=== PATIENT | male | born 1985 | race African-American/Black ===

== ENCOUNTER 2017-03-30 21:23 | Emergency (ER) | payer OTHER ==
[~2017-03-30] VITALS: Ht 177.8 cm; Wt 83.9 kg
[~2017-03-30 21:23] MED LIST: AMITRIPTYLINE H50 M2 PO; APAP500; BUTRANS1 EAC1 TD; BUTRANS1 EAC2 TD; HUMALOG100 UNIT/2 SQ; IBUPROFEN 200200 M1; LINZESS290 MCG PO; MELATONIN3 MG PO; METHADONE HCL5 MG PO; PHENERGAN 25 MG25 M1 PO; TRILEPTAL150 MG PO; VITAMIN D 5050000 I1 PO; Z-SLEEP50 MG/30 M; ZETIA10 MG PO
[2017-03-30] MEDS ORDERED: HYDROCODONE-AP1 EAC6 PO (22:30)
[2017-03-30 23:05] VITALS: BP 131/80
== END 2017-03-30 23:07 | disposition home or self-care (01) ==
LOC: ER 21:23
DX: M25.552 Pain in left hip (principal); M25.532 Pain in left wrist; E11.9 Type 2 diabetes mellitus without complications; Z91.013 Allergy to seafood; Z79.4 Long term (current) use of insulin; W01.0XXA Fall on same level from slipping, tripping and stumbling without subsequent striking against object, initial encounter; Y93.89 Activity, other specified; Y92.89 Other specified places as the place of occurrence of the external cause; Y99.8 Other external cause status

== ENCOUNTER 2017-08-25 17:18 | Emergency (ER) | payer OTHER ==
[~2017-08-25] VITALS: Ht 177.8 cm; Wt 84.8 kg
[~2017-08-25 17:18] MED LIST changes: +HYDROCODONE-AP1 EAC6 PO
[2017-08-25 18:12] LABS: ABSOLUTE NEUTROPHILS 5.2 thou/uL (1.4-8.2); BASOPHILS 1.1 % (0.0-2.0); EOSINOPHILS 2.1 % (0.0-3.0); HEMATOCRIT 37.5 % (42.0-52.0); HEMOGLOBIN 12.5 gm/dL (14.0-18.0); LYMPHOCYTES 22.1 % (24.0-44.0); MCH 27.7 pg (26.0-34.0); MCHC 33.2 g/dL (28.0-37.0); MCV 83.6 fL (80.0-100.0); MONOCYTES 11.2 % (1.0-8.0); PLATELET COUNT 250 thou/uL (150-400); POLYS 63.5 % (36.0-66.0); RBC 4.49 mil/uL (4.50-6.00); RDW 13.6 % (10.5-14.5); WBC 8.3 thou/uL (4.0-11.0)
[2017-08-25] MEDS ORDERED: PROAIR HFA8.5 GM INH (18:17)
[2017-08-25] MEDS ORDERED: LISINOPRIL10 MG PO (18:20)
[2017-08-25] MEDS ORDERED: QVAR REDIHALE10.6 G1 INH (18:20)
[2017-08-25] MEDS ORDERED: PROAIR RESPICL90 MCG INH (18:21)
[2017-08-25 18:34] LABS: CALCIUM 9.1 mg/dL (8.5-10.1); CREATININE 1.3 mg/dL (0.7-1.3); POTASSIUM 4.7 mmol/L (3.5-5.1); TOTAL BILIRUBIN 0.5 mg/dL (<0.1-1.0); TOTAL PROTEIN 8.4 g/dL (6.4-8.2)
[2017-08-25] MEDS ORDERED: AUGMENTIN 875-1 EACH PO (20:09)
== END 2017-08-25 22:15 | disposition left against medical advice (07) ==
LOC: ER 17:18
PROVIDERS: Physician Assistant
DX: E11.621 Type 2 diabetes mellitus with foot ulcer (principal); E11.65 Type 2 diabetes mellitus with hyperglycemia; L97.529 Non-pressure chronic ulcer of other part of left foot with unspecified severity; R79.82 Elevated C-reactive protein (CRP); R74.0 Nonspecific elevation of levels of transaminase and lactic acid dehydrogenase [LDH]; M86.9 Osteomyelitis, unspecified; Z91.013 Allergy to seafood

== ENCOUNTER 2018-02-15 16:44 | Emergency (ER) | payer OTHER ==
[~2018-02-15] VITALS: Ht 177.8 cm; Wt 83.9 kg
[~2018-02-15 16:44] MED LIST changes: +AUGMENTIN 875-1 EACH PO; +LISINOPRIL10 MG PO; +PROAIR HFA8.5 GM INH; +PROAIR RESPICL90 MCG INH; +QVAR REDIHALE10.6 G1 INH
[2018-02-15] MEDS ORDERED: NORCO 5-325 TA1 EACH PO (17:25)
[2018-02-15 18:02] VITALS: BP 131/82
== END 2018-02-15 18:03 | disposition home or self-care (01) ==
LOC: ER 16:44
DX: S62.324A Displaced fracture of shaft of fourth metacarpal bone, right hand, initial encounter for closed fracture (principal); I10 Essential (primary) hypertension; E78.5 Hyperlipidemia, unspecified; E11.40 Type 2 diabetes mellitus with diabetic neuropathy, unspecified; Z79.4 Long term (current) use of insulin; Z91.013 Allergy to seafood; W23.1XXA Caught, crushed, jammed, or pinched between stationary objects, initial encounter; Y92.89 Other specified places as the place of occurrence of the external cause; Y93.89 Activity, other specified; Y99.8 Other external cause status

== ENCOUNTER 2018-04-14 22:49 | Emergency (ER) | payer OTHER ==
[~2018-04-14] VITALS: Ht 177.8 cm; Wt 93.0 kg
[~2018-04-14 22:49] MED LIST changes: +NORCO 5-325 TA1 EACH PO
[2018-04-15] MEDS ORDERED: KEFLEX500 M1 PO (00:48)
[2018-04-15 01:05] VITALS: BP 132/89
== END 2018-04-15 01:06 | disposition home or self-care (01) ==
LOC: ER 22:49
DX: S66.127A Laceration of flexor muscle, fascia and tendon of left little finger at wrist and hand level, initial encounter (principal); E11.9 Type 2 diabetes mellitus without complications; Z91.09 Other allergy status, other than to drugs and biological substances; W26.0XXA Contact with knife, initial encounter; Y93.89 Activity, other specified; Y92.89 Other specified places as the place of occurrence of the external cause; Y99.8 Other external cause status

== ENCOUNTER 2018-04-21 05:25 | Day surgery (SDC) | payer OTHER ==
[~2018-04-21] VITALS: Ht 154.9 cm; Wt 95.7 kg
--- NOTE | ~2018-04-21 | O ---
[facility] [place] [address] OPERATIVE REPORT Name: GORDO RAY Room #: 150-3 [facility] M.R.#: [id number] Admission: 04/21/18 ������������������ Attend Phys: Sana Fernandes, Discharge: ������������������ Date of : [birth year] Report #: [id number] THIS REPORT FOR: //name// CC: Fco Fernandes DATE OF SERVICE: 04/21/2018 PREOPERATIVE DIAGNOSES: Left small finger probable zone 2 flexor tendon and digital nerve injury. POSTOPERATIVE DIAGNOSES: 1. Left zone 2 flexor digitorum profundus transection. 2. Left zone 2 flexor digitorum superficialis transection. 3. Left small finger ulnar digital nerve transection. 4. Left small finger radial digital nerve transection. 5. Left ring finger ulnar digital nerve partial injury. 6. Left small finger A2 rohan injury. PROCEDURE PERFORMED: 1. Left small finger wound exploration. 2. Left small finger zone 2 flexor digitorum profundus repair. 3. Left small finger flexor digitorum superficialis excision. 4. Left small finger ulnar digital nerve repair with a nerve tube. 5. Left small finger radial digital nerve repair with a nerve tube. 6. Left ring finger ulnar digital nerve wrapping. 7. Left small finger A2 rohan repair. SURGEON: Sana Fernandes MD. ANESTHESIA: General mask anesthesia. ESTIMATED BLOOD LOSS: Minimal. TOURNIQUET TIME: 94 minutes. COMPLICATIONS: None. CONDITION: Stable. DISPOSITION: Recovery room. INDICATIONS: The patient is a 33-year-old male with the above-mentioned diagnosis. He elects for operative treatment. The risks, benefits, alternatives and complications were discussed that included but were not limited to infection, damage to vessels or nerves and incomplete relief of his symptoms. [address] [place] [address] OPERATIVE REPORT Name: GORDO RAY Room #: 150-3 [facility] Carol#: [id number] Admission: 04/21/18 ������������������ Attend Phys: Sana Fernandes, Discharge: ������������������ Date of : [birth year] Report #: [id number] We discussed he is high likelihood to have stiffness and having some persistent numbness. He was encouraged to get to therapy on Wednesday at the ____. Informed consent was obtained. The correct extremity was identified and labeled by myself after verbal confirmation of the patient as well as visual confirmation and signed informed consent. DESCRIPTION OF PROCEDURE: The patient brought back to the operating room and placed on the operating table in a supine position. He received preoperative antibiotics. Tourniquet was placed over padding. The patient's left upper extremity was sterilely prepped and draped in usual fashion. Final timeout was taken to verify the correct patient, operative procedure, operative site, all concurred. The arm was elevated, exsanguinated and tourniquet inflated. The entire procedures were done with the aid of 3.5 times loupe magnification. The suture was removed from the prior wound. It extended from the mid portion of the ring finger over to the ulnar side of the small finger and extended distally almost to the PIP joint. The wound was explored both proximally and distally in a modified Kalyan-type incision. Dissection was carried down through the subcutaneous tissue with tenotomy scissors. Each digital nerve on the radial and ulnar sides of the small finger were identified. They were found to be completely transected and after the edges were cleaned with microsurgical techniques, there was a 5 mm gap. Next, the ulnar side of the ring finger digital nerve was identified. It was a partial transection. Next, the FDP and FDS tendons were identified. There was approximately 60% transection of the A2 rohan. The FDP tendon looked completely transected. The FDS tendon was extremely thinned and small and it was elected to remove it in order to decrease the bulk and hopefully improve the range of motion in this patient. It was excised. Careful attention placed to avoiding damage to the A1 rohan or any other rohan structures. Each radial and ulnar digital nerve was repaired using 9-0 nylon suture into a 2 mm AxoGen nerve tube. There was approximately 5 mm gap after repair and there was no significant tension with the finger in full extension. Next, a nerve wrap was placed around the ulnar digital nerve ends and sutured with 9-0 nylon suture. Next, the FDP tendon was repaired using a locked cruciate stitch with 3-0 Supramid and a running locked epitendinous 5-0 Prolene stitch. There was no gapping with extension. After this was done, the A2 rohan was repaired using 4-0 Ethibond suture and then the transverse portion was repaired using a 4-0 Vicryl suture. This resulted in good glide through the rohan system. The wound was thoroughly irrigated. The skin was closed with 4-0 nylon suture. Approximately 5 mL of 0.25% Marcaine was placed subcutaneously. The hand was placed in a volar dorsal slab splint with the wrist and fingers flexed. All fingers were pink with brisk capillary refill at the conclusion of the case [facility] [address] [place] [address] OPERATIVE REPORT Name: GORDO RAY Room #: 150-3 [facility] Carol#: [id number] Admission: 04/21/18 ������������������ Attend Phys: Sana Fernandes, Discharge: ������������������ Date of : 87 Report #: [id number] after deflation of tourniquet. All sponge and needle counts were correct. The patient was transferred to postoperative recovery room in stable condition. ��������������������������������������������� ���������������������������������������� By: ��������������������������������������������� 1336 1501 Sana Fernandes MD /love
[~2018-04-21 05:25] MED LIST changes: +CENTRUM SILVER1 EAC4 PO; +ERGOCALCIF50000 UNIT PO; +FLUTICASONE PRO16 GM NASAL; +KEFLEX500 M1 PO; +PULMICORT FLEX90 MCG INH
[2018-04-21 08:03] VITALS: BP 140/78
--- NOTE | 2018-04-21 08:42 | EKG ---
[place] [address] [facility] [employer] ([employer]) [place] [address] ELECTROCARDIOGRAM REPORT Name: GORDO RAY Room #: 150-3 [facility].#: [id number] ������������������ Admission: 04/21/18 ������������������ Attend Phys: Sana Fernandes, Discharge: ������������������ Date of : 87 Report #: [id number] ����������������������������������������������������������������� [id number] THIS REPORT FOR: //name// [facility] Test Date: 2018-04-21 Test Time: 08:02:57 Pat Name: GORDO RAY Department: Room: 150 3 Gender: M Engine Builder: MARIJA : 1985 Requested By: Sana Fernandes Order Number: [id number] MD: Octaviano Morris Measurements Intervals Switchback Rate: 98 P: 71 NM: 150 QRS: 46 QRSD: 93 T: 25 QT: 325 QTc: 415 Interpretive Statements Sinus rhythm ST elev, probable normal early repol pattern Baseline wander in lead(s) I,V3 No previous ECG available for comparison Electronically Signed On 04-21-2018 8:42:31 MARKETING ANALYTICS SPECIALIST by Octaviano Morris [email or web address] ��������������������������������������������� <ELECTRONICALLY SIGNED> ���������������������������������������� By: Octaviano Morris MD, [facility] ��������������������������������������������� 04/21/18 0842 1 1 Octaviano Morris MD, [facility] /EPI
[2018-04-21 12:47] VITALS: BP 140/78
== END 2018-04-21 13:30 | disposition home or self-care (01) ==
LOC: TBA 05:25 → OR 05:25
DX: S64.497A Injury of digital nerve of left little finger, initial encounter (principal); S66.127A Laceration of flexor muscle, fascia and tendon of left little finger at wrist and hand level, initial encounter; X58.XXXA Exposure to other specified factors, initial encounter; Y93.89 Activity, other specified; Y92.89 Other specified places as the place of occurrence of the external cause; Y99.8 Other external cause status; Z79.899 Other long term (current) drug therapy; Z79.01 Long term (current) use of anticoagulants
CPT/HCPCS: 50010; 50101; 50386; 55430; 56525; 56526; 56528; 56531; 56532; 57006; 57091; 57178; 62110; 62900; 70005

== ENCOUNTER 2018-05-26 23:20 | Emergency (ER) | payer OTHER ==
[~2018-05-26] VITALS: Ht 177.8 cm; Wt 89.8 kg
[2018-05-27 01:51] LABS: HEMATOCRIT 40.2 % (42.0-52.0); HEMOGLOBIN 13.8 gm/dL (14.0-18.0); MCH 28.4 pg (26.0-34.0); MCHC 34.2 g/dL (28.0-37.0); MCV 82.9 fL (80.0-100.0); PLATELET COUNT 205 thou/uL (150-400); RBC 4.85 mil/uL (4.50-6.00); RDW 13.9 % (10.5-14.5); WBC 5.7 thou/uL (4.0-11.0)
[2018-05-27 01:57] LABS: CALCIUM 9.5 mg/dL (8.5-10.1); CREATININE 1.2 mg/dL (0.7-1.3); POTASSIUM 3.8 mmol/L (3.5-5.1)
[2018-05-27 02:02] LABS: ALBUMIN 3.5 g/dL (3.4-5.0); DIRECT BILIRUBIN 0.1 mg/dL (<0.1-0.3); TOTAL BILIRUBIN 0.4 mg/dL (<0.1-1.0); TOTAL PROTEIN 7.4 g/dL (6.4-8.2)
[2018-05-27] MEDS ORDERED: PROTONIX 20 MG20 M1 PO (02:33)
[2018-05-27 02:59] VITALS: BP 118/62
[2018-05-27 03:38] LABS: ABSOLUTE NEUTROPHILS 2.6 thou/uL (1.4-8.2)
== END 2018-05-27 03:01 | disposition home or self-care (01) ==
LOC: ER 23:20
PROVIDERS: Student in an Organized Health Care Education/Training Program
DX: K21.9 Gastro-esophageal reflux disease without esophagitis (principal); I10 Essential (primary) hypertension; E78.5 Hyperlipidemia, unspecified; J45.909 Unspecified asthma, uncomplicated; E11.43 Type 2 diabetes mellitus with diabetic autonomic (poly)neuropathy; K31.84 Gastroparesis; M54.9 Dorsalgia, unspecified; G89.29 Other chronic pain; Z88.1 Allergy status to other antibiotic agents; Z91.013 Allergy to seafood; Z79.4 Long term (current) use of insulin

== ENCOUNTER → 2019-03-03 | Day surgery (SDC) | payer OTHER ==
[~2019-03-03] MED LIST changes: +PROTONIX 20 MG20 M1 PO
--- NOTE | ~2019-03-03 | O ---
[facility] [place] [address] OPERATIVE REPORT Name: GORDO RAY Room #: [facility] M..#: [id number] Admission: 03/03/19 Attend Phys: Sana Fernandes, Discharge: Date of : [birth year] Report #: [id number] THIS REPORT FOR: //name// CC: Carole Fernandes DATE OF SERVICE: 03/03/2019 PREOPERATIVE DIAGNOSIS: Left small finger abscess, possible flexor tenosynovitis. POSTOPERATIVE DIAGNOSIS: Left small finger abscess. PROCEDURE PERFORMED: Left small finger abscess, debridement of skin and subcutaneous tissue. SURGEON: Sana Fernandes MD ANESTHESIA: General mask anesthesia. ESTIMATED BLOOD LOSS: Minimal. TOURNIQUET TIME: 7 minutes. COMPLICATIONS: None. CONDITION: Stable. DISPOSITION: Recovery room. INDICATIONS: The patient is a 34-year-old male with the above-mentioned diagnosis. He elects for operative treatment. The risks, benefits, alternatives and complications were discussed including but not limited to infection, damage to vessels or nerves, incomplete relief of his symptoms or worsening of any symptoms. Informed consent was obtained. The correct extremity was identified and labeled by myself after verbal confirmation of the patient as well as visual confirmation and signed informed consent. DESCRIPTION OF PROCEDURE: The patient was brought back in the preoperative holding area. The patient again was examined. He did not have a significant amount of tenderness volarly along the flexor tendon sheath proximal to the distal phalanx. He was brought to the operating room and placed on the operating table in a supine position. He received antibiotics after cultures were taken and upon tourniquet deflation. The left upper extremity was elevated and the tourniquet was inflated. The distal portion of the incision where the patient reported drainage was opened using a prior surgical incision using a [facility] [address] [place] [address] OPERATIVE REPORT Name: CINTHYA RAYROMA Room #: [facility] Carol#: [id number] Admission: 03/03/19 Attend Phys: Sana Fernandes, Discharge: Date of : [birth year] Report #: [id number] Chevron type incision, totaling about 1.5 cm and purulent fluid was easily obtained. The dissection was carried down through subcutaneous tissue with tenotomy scissors. The insertion of the flexor tendon graft was identified. It was found to be intact. One suture that appeared to be somewhat loose was excised. A mosquito hemostat was placed proximally. No purulent fluid was found proximally and upon milking the tissue distally. No purulent fluid was found or any other type of cloudy fluid. This was then determined to be a deep abscess only, not involving the entire flexor tendon sheath and so the area was thoroughly irrigated and debrided with a liter of antibiotic saline. Next, the skin closed nicely without using any sutures and so the wound was dressed with sterile gauze. The tourniquet was deflated. A culture was taken and sent to microbiology for aerobic, anaerobic and fungal. The fingers were pink with brisk capillary refill at the conclusion of case after deflation of tourniquet. All sponge and needle counts were correct. The patient was transferred to postoperative recovery room in stable condition. He tolerated the procedure well. By: 1702 1713 Sana Fernandes MD /nt
== END | disposition home or self-care (01) ==
LOC: OR 11:51
DX: L02.512 Cutaneous abscess of left hand (principal); B96.89 Other specified bacterial agents as the cause of diseases classified elsewhere; I10 Essential (primary) hypertension; E11.621 Type 2 diabetes mellitus with foot ulcer; J45.909 Unspecified asthma, uncomplicated; E78.5 Hyperlipidemia, unspecified; K21.9 Gastro-esophageal reflux disease without esophagitis; M86.9 Osteomyelitis, unspecified; Z98.890 Other specified postprocedural states; Z79.899 Other long term (current) drug therapy; Z87.19 Personal history of other diseases of the digestive system; Z88.8 Allergy status to other drugs, medicaments and biological substances; Z79.4 Long term (current) use of insulin
CPT/HCPCS: 50010; 50101; 50386; 56526; 57006; 57091; 57178; 62110; 62900; 70005

== ENCOUNTER 2019-08-15 06:49 | Inpatient (IN) | payer OTHER ==
[~2019-08-15] VITALS: Ht 177.8 cm; Wt 96.2 kg
--- NOTE | ~2019-08-15 | O ---
[facility] [place] [address] OPERATIVE REPORT Name: GORDO RAY Room #: 434-P [facility] Carol#: [id number] Admission: 08/15/19 Attend Phys: Sana Fernandes, Discharge: Date of : 87 Report #: [id number] THIS REPORT FOR: cc: Carole Olmedo MD, Cora A. MD Deardorff,Sana Corona MD ~ CC: Carole Fernandes DATE OF SERVICE: 08/15/2019 PREOPERATIVE DIAGNOSIS: Left small finger possible P1 osteomyelitis with fracture. POSTOPERATIVE DIAGNOSIS: Left small finger possible P1 osteomyelitis with fracture. PROCEDURE PERFORMED: Left small finger incision and debridement, proximal phalanx bone. SURGEON: Sana Fernandes MD ANESTHESIA: General mask anesthesia. ESTIMATED BLOOD LOSS: 1 mL. TOURNIQUET TIME: 22 minutes. SPECIMEN: Swab and tissue were sent to microbiology. COMPLICATIONS: He aspirated at the end of the procedure upon awakening from anesthesia. INDICATIONS: The patient is a 34-year-old male with the above-mentioned diagnosis. He elects for operative treatment. The risks, benefits, alternatives and complications were discussed including but not limited to infection, damage to vessels or nerves, incomplete relief of his symptoms. Informed consent was obtained. The correct extremity was identified and labeled by myself after verbal confirmation of the patient as well as visual confirmation and signed informed consent. DESCRIPTION OF PROCEDURE: The patient was brought back to the operating room and placed in a supine position. He received preoperative antibiotics. Tourniquet was placed over padding on the patient's left upper extremity. Left upper extremity was sterilely prepped and draped in the usual fashion. Final timeout was taken to verify correct patient, operative procedure, and operative [address] [address] OPERATIVE REPORT Name: GORDO RAY Room #: 434-P [facility] Abel Med[place]#: [id number] Admission: 08/15/19 Attend Phys: Sana Fernandes, Discharge: Date of : [birth year] Report #: [id number] site, all concurred. The arm was elevated, but was not exsanguinated and the tourniquet inflated. Next, an ulnar-sided incision was made at the mid portion of the left small finger P1. Dissection was carried down through subcutaneous tissue with tenotomy scissors. The fracture site was identified. It was curetted. There was no purulent fluid and the bone actually felt to be of good quality. Fluoroscopic guidance was used. The area was then thoroughly irrigated with a liter of antibiotic saline. The fracture had very minimal motion to it using live fluoroscopic guidance. The skin was then closed with 4-0 nylon suture. The wound was dressed with Xeroform and sterile gauze. He was placed in a bulky dressing and an ulnar gutter splint. All fingers were pink with brisk capillary refill at the conclusion of case after deflation of tourniquet and after application of dressing. All sponge and needle counts were correct. As the patient was awakening from anesthesia, he vomited and appeared to aspirate some of the fluid into his lungs, he was suctioned appropriately. Please see anesthesia record for further details regarding this. The patient was transferred to postoperative recovery room in stable condition. By: 1304 1336 Sana Fernandes MD /nt
[~2019-08-15 06:49] MED LIST changes: -ERGOCALCIF50000 UNIT PO; -HUMALOG100 UNIT/2 SQ; +HUMALOG100 UNIT/2 SUBQ; +OLMESARTAN MEDO20 MG PO; +VITAMIN D21250 MC1 PO
--- NOTE | 2019-08-15 08:14 | EKG ---
[facility] [place] [address] ELECTROCARDIOGRAM REPORT Name: GORDO RAY Room #: 150-4 [facility] M.R.#: [id number] Admission: 08/15/19 Attend Phys: Sana Fernandes, Discharge: Date of : [birth year] Report #: [id number] THIS REPORT FOR: cc: aCrole Olmedo MD, Cora A. 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: Reva IBARRA : 1985 Requested By: Sana Fernandes Order Number: [id number] MD: Octaviano Morris Measurements Intervals [place] Rate: 100 P: 67 MO: 155 QRS: 42 QRSD: 78 T: 18 QT: 322 QTc: 416 Interpretive Statements Sinus tachycardia Otherwise no significant abnormality Compared to ECG 04/21/2018 08:02:57 Heart rate has increased Electronically Signed On 08-15-2019 8:13:23 CDT by Octaviano Morris [email or web address] <ELECTRONICALLY SIGNED> By: Octaviano Morris MD, [facility] 08/15/19 0813 0728 Octaviano Morris MD, [facility] /EPI
[2019-08-15 08:19] VITALS: BP 135/82
[2019-08-15 11:30] VITALS: BP 118/100
--- NOTE | 2019-08-15 11:30 | NUR ---
PT ADMITTED FROM PACU S/P I/D LT SMALL FINGER...ASPIRATED AFTER EXTUBATION... 100& SAT 2L PRIOR TO TX THEN RA SAT 95% IMMEDIATELY PRIOR TO TX TO 4S...PATIENT PLACED IN BED ON UNIT AND BEGAN SHAKING...WAS UNABLE TO KEEP HER SATS UP AND STARTED ON 2L THEN SATS 79%..INCREASED TO 9L WITH SATS 85%...THEN PLACED ON VENIMASK 50% FOR SATS 93%...SAT PROBE CHANGED TO EAR CLIP AND WARM BLANKETS APPLIED...AFTER PATIENT STOPPED SHIVERING HE WAS ABLE TO GO TO 98% ON RA...
[2019-08-15 12:00] VITALS: BP 110/63
--- NOTE | 2019-08-15 12:30 | NUR ---
NOTIFIED DR GRAHAM OF DESATING AND SHIVERING...CHEST XRAY RESULTS READ TO HER AND SHE CONSULTED DR ROBERSON FOR MEDICAL MGT AND DISCHARGE DECISIONS... DR ROBERSON CALLED AND ROUNDED ON PATIENT...
--- NOTE | 2019-08-15 12:46 | NUR ---
VASCULAR ACCESS CONSULTED FOR PICC POSTOP. PT'S LABS,MEDS,HISTORY ORDER AND CONSENT VERIFIED. DISCUSSED BENEFITS AND RISK OF PICC WITH PT, VERBALIZED UNDERSTANDING. YUVAL BASILIC WAS WIDELY PATENT WITH USG. SL 4FR POWER PICC TRIMMED TO 47CM INSERTED TO 1CM EXTERNAL. STAT CXR SHOWED LINE WENT UP JUGULAR, SO POWER FLUSHED AND REPOSITIONED. 2ND CXR VERIFIED PLACEMENT,CAJ. PICC RELEASED FOR IMMEDIATE USE TO [facility] SMILEY PER PROTOCOL.
[2019-08-15 12:48] VITALS: BP 127/62
[2019-08-15 14:16] LABS: ABSOLUTE NEUTROPHILS 5.3 thou/uL (1.4-8.2); BASOPHILS 0.5 % (0.0-2.0); HEMATOCRIT 41.7 % (42.0-52.0); HEMOGLOBIN 13.8 gm/dL (14.0-18.0); LYMPHOCYTES 7.9 % (24.0-44.0); MCH 28.1 pg (26.0-34.0); MCV 85.2 fL (80.0-100.0); MONOCYTES 7.2 % (1.0-8.0); PLATELET COUNT 229 thou/uL (150-400); POLYS 84.4 % (36.0-66.0); RBC 4.89 mil/uL (4.50-6.00); RDW 13.8 % (10.5-14.5); WBC 6.2 thou/uL (4.0-11.0)
[2019-08-15 14:25] LABS: CALCIUM 8.4 mg/dL (8.5-10.1); CREATININE 1.4 mg/dL (0.7-1.3); POTASSIUM 4.2 mmol/L (3.5-5.1)
[2019-08-15 14:30] LABS: ALBUMIN 3.1 g/dL (3.4-5.0); MAGNESIUM 1.8 mg/dL (1.8-2.4); TOTAL BILIRUBIN 0.6 mg/dL (0.2-1.0); TOTAL PROTEIN 6.6 g/dL (6.4-8.2)
[2019-08-15 14:33] LABS: BE(vivo) -2.6 mmol/L (-2 to +3); HCO3 21.7 mmol/L (22.0-26.0); PCO2 36.4 mmHg (35.0-45.0); pH 7.394 (7.360-7.450); sO2 85.5 % (92.0-98.0)
[2019-08-15 16:00] VITALS: BP 103/61
[2019-08-15 20:20] VITALS: BP 126/59
--- NOTE | 2019-08-16 04:13 | NUR ---
Assumed pt care at 1900. Pt A/OX4,VSS, Pt has a non-productive cough, lung sounds coarse/diminished desating on 4L,oxygen titrated up by RT to 6L/NC but sats in the lower 90's Venti-mask applied to support oxygenation sats 95%,pt encouraged to keep HOB up but states he's more comfortable lying down that way. Encouraged to use incentive spirometer while awake. Pt c/o pain to left side of body as well as left hand medicated per EMAR with some relief reported. Left hand on a splint wrapped in acewrap,CMS intact. RUE PICC patent with IVF/ABT's infusing w/o problems. Up with SBA,continent of B&B. Resting quietly in bed w/o distress noted, will continue to monitor pt.
[2019-08-16 04:15] VITALS: BP 115/49
[2019-08-16 05:46] LABS: ABSOLUTE NEUTROPHILS 7.9 thou/uL (1.4-8.2); BASOPHILS 0.8 % (0.0-2.0); EOSINOPHILS 0.3 % (0.0-3.0); HEMOGLOBIN 11.9 gm/dL (14.0-18.0); LYMPHOCYTES 14.9 % (24.0-44.0); MCH 28.3 pg (26.0-34.0); MCHC 33.1 g/dL (28.0-37.0); MCV 85.6 fL (80.0-100.0); MONOCYTES 5.4 % (1.0-8.0); PLATELET COUNT 188 thou/uL (150-400); POLYS 78.6 % (36.0-66.0); RBC 4.21 mil/uL (4.50-6.00); RDW 13.9 % (10.5-14.5)
[2019-08-16 06:05] LABS: CALCIUM 8.1 mg/dL (8.5-10.1); CREATININE 1.9 mg/dL (0.7-1.3); MAGNESIUM 2.1 mg/dL (1.8-2.4); POTASSIUM 4.1 mmol/L (3.5-5.1)
[2019-08-16 08:41] VITALS: BP 103/61
--- NOTE | 2019-08-16 09:09 | NUR ---
ORDERS RECEIVED FOR EVAL AND TREAT. SPOKE WITH Pt WHO STATES HE HAS ALREADY BEEN UP WITHOUT DIFFICULTY AND DOES NOT FEEL WEAK OR OFF BALANCE. Pt IS DECLINING FORMAL P.T. EVAL. DISCUSSED WITH NURSING AND THEY HAVE SEEN HIM MOBILIZE WITHOUT DIFFICULTY.
--- NOTE | 2019-08-16 09:31 | NUR ---
chart review. report from bedside nurse, pt off o2. picc line will stay in for dc continued treatment and he wants go home today per bedside nurse. cm visited with pt via phone call, intro to dcp and transition of care ie home infusion. " live wit sig other, safe, independent when feeling ok and not having bad day. have cane and walker if needed for bad days. work outside home before [employer], now working from home. my dr set up [facility] for iv care, labs and iv abx, think [facility] is providing all the care. they came up here to visit me yesterday"/janeen. will cont following as needed for dc needs.
--- NOTE | 2019-08-16 09:35 | NUR ---
PT ALERT XS 4 STATES NO PAIN AT THE PRESENT. FACILITY CHECKED BLOOD SUGAR BUT PATIENT SHOWED THIS NURSE HIS INSULIN PUMP HOW IT TAKES BLOOD SUGAR AND GIVES. INSULIN. PT IS PLEASANT AND COOPERATIVE. WANTS TO DISCHARGE TODAY.
[2019-08-16 11:05] VITALS: BP 103/61
--- NOTE | 2019-08-16 16:55 | NUR ---
CALL TO DR ROBERSON PT HAS T= 101.0 GAVE OXYCODONE NEED ORDERS INCLUDING TYLENOL
[2019-08-16 17:24] LABS: URINE BILIRUBIN NEGATIVE (Negative); URINE BLOOD 1+ (Negative); URINE CLARITY CLEAR; URINE COLOR YELLOW; URINE GLUCOSE-RANDOM* NEGATIVE (Negative); URINE KETONES NEGATIVE (Negative); URINE LEUKOCYTES-REFLEX NEGATIVE (Negative); URINE NITRITE-REFLEX NEGATIVE (Negative); URINE PROTEIN (DIPSTICK) NEGATIVE (Negative); URINE SPECIFIC GRAVITY 1.015 (1.005-1.035)
[2019-08-16 17:38] LABS: CASTS None Seen /LPF (None Seen); CRYSTALS None Seen /LPF (None Seen); SQUAMOUS None Seen /LPF (0-3); URINE WBC-REFLEX None Seen /HPF (0-5)
[2019-08-16 17:39] LABS: BACTERIA-REFLEX 1-9 Few /HPF (None Seen); URINE RBC 0-2 Rare /HPF (0-2)
[2019-08-16 17:53] VITALS: BP 120/56
[2019-08-16 19:17] VITALS: BP 104/46
--- NOTE | 2019-08-16 20:26 | NUR ---
PATIENT STATES HAS KEPT HIS PARTNER UP TO DATE ON HIS CONDITION NO NEED FOR THIS NURSE TO CALL.
[2019-08-17 03:44] VITALS: BP 120/75
--- NOTE | 2019-08-17 05:15 | NUR ---
Assumed pt care at 1900. Pt is A/OX4,VSS always a little tachy per pt.Pt had an elevated shift prior to shift change and was medicated with Tylenol with relief 98.5 on reassessment. Dsg in place on Left hand C/D/I,CMS intact. RUE PICC patent infusing IVF.Pt is up ad kian and calls approp for help. Pt has been on RA and sats above 90%,around 4 PCT observed pt's sats in the 70's pt somewhat confused when awokened.HOB elevated and oxygen applied at 4L/NC sats up to 92% RT updated other VSS. BS checked;109,denied any other symptoms. Pt encouraged to call short story writer as needed. Call light/personal items placed within reach, will continue to monitor pt.
[2019-08-17 05:59] LABS: CALCIUM 8.4 mg/dL (8.5-10.1); CREATININE 1.4 mg/dL (0.7-1.3)
[2019-08-17 07:05] VITALS: BP 91/53
--- NOTE | 2019-08-17 11:24 | NUR ---
discussed during los, per md no dc home today rt fever.
[2019-08-17 15:40] VITALS: BP 114/66
--- NOTE | 2019-08-17 17:26 | NUR ---
PT A&OX4. PICC LINE IN YUVAL INTACT INFUSING IV ANTIBIOTICS W/O COMPS. PT WITH INCREASED RESPERATIONS THIS AM, LS DIMINISHED AND ON RA. O2 SAT WAS 88%. PT PLACED ON O2 @ 3 LITERS, RT CALLED FOR BREATHING TREATMENT. PT ENCOURAGED TO TO DEEP BREATH AND USE IS. PT BREATHING SLOWER, O2 SAT AT 98% ON 1 LITER. WILL CONT POC.
[2019-08-17 18:56] VITALS: BP 131/88
--- NOTE | 2019-08-17 23:57 | NUR ---
ASSUMED PT CARE AT APPROX 1900.PT WAS OBSERVED GETTING OUT OF THE SHOWER AT SHIFT CHANGE.PT'S O2 WAS AT 88% WHEN HE CAME OUT FROM THE SHOWER,PT WAS PUT ON 2L/NC O2 WENT UP TO 96%.PT HAD A LOW GRADE TEMP,TYLENOL ADMINISTERED.DRSG TO HIS L HAND C/D/I.PT HAS AN INSULIN PUMP,BG WAS 103 AT HS.PT STILL TACHY,PER REPORT, PHYSICIAN AWARE.URINAL AT BEDSIDE.CALL LIGHT WITHIN REACH.
[2019-08-18 03:39] VITALS: BP 133/81
[2019-08-18 06:32] LABS: HEMATOCRIT 36.4 % (42.0-52.0); HEMOGLOBIN 11.9 gm/dL (14.0-18.0); MCH 27.9 pg (26.0-34.0); MCHC 32.6 g/dL (28.0-37.0); MCV 85.6 fL (80.0-100.0); RBC 4.26 mil/uL (4.50-6.00); RDW 13.9 % (10.5-14.5)
[2019-08-18 06:40] LABS: CALCIUM 8.4 mg/dL (8.5-10.1); CREATININE 1.1 mg/dL (0.7-1.3)
[2019-08-18 06:43] LABS: PCO2 42.5 mmHg (35.0-45.0); PO2 67.1 mmHg (80.0-100.0); pH 7.404 (7.360-7.450); sO2 93.4 % (92.0-98.0)
[2019-08-18 08:42] VITALS: BP 111/61
--- NOTE | 2019-08-18 09:38 | NUR ---
PATIENT IS UPSET STATES NIGHT NURSE WAS SUPPOSED TO BRING HIM INSULIN TO FILL PUMP. NEVER DID THIS NURSE CALLED PHARMACY THE PHARMACIST STATES WE CAN NOT LET PATIENTS DO THAT IN HOSPITAL. PT WAS TOLD TO EAT BREAKFAST AND THEN THIS NURSE WILL CHECK HIS BLOOD SUGAR AND PUMP READING AND GIVE HIM S/ HE WANTS TO GO GO HOME TODAY, THIS NURSE WILL PUT IN CALL TO DR ROBERSON.
--- NOTE | 2019-08-18 10:33 | NUR ---
report from bedside nurse, needing iv abx orders that was set up prior to admit to [facility]. cm called and [facility] vancom[facility] 1g q 12 hours. cm passed on information to bedside nurse to give to MD for dc possible today or over the weekend. bedside nurse to fax dc orders to [facility] [phone] and call so they can deliver the iv abx [phone]
[2019-08-18 17:29] VITALS: BP 126/72
--- NOTE | 2019-08-18 17:39 | NUR ---
PT'S SIGNIFICANT OTHER WAS HERE AND UPDATED ON PATIENT'S CONDITION. PT GIVEN TYLENOL PRN REQUESTED PRN FOR PAIN. O2 DELIEVERED PATIENT IS TO DC TOMMORROW.
[2019-08-18 19:30] VITALS: BP 129/72
--- NOTE | 2019-08-19 00:46 | NUR ---
PT OBSERVED COMING OUT FROM THE TOILET,SOB NOTED.PT NOTED TO BE COUGHING MORE THIS HS.PT CONT ON O2/NC.BG AT HS WAS 167,INSULIN DOSED PER PUMP.PT CONT ON IV ABX ORDERED.PT RESTING ON HIS BED AT THIS TIME.CALL LIGHT WITHIN REACH.
[2019-08-19 03:30] VITALS: BP 155/96
[2019-08-19 08:24] VITALS: BP 136/82
[2019-08-19 15:06] VITALS: BP 103/61
[2019-08-19 16:06] VITALS: BP 103/61
[2019-08-19 16:29] VITALS: BP 103/61
--- NOTE | 2019-08-19 16:32 | NUR ---
PATIENT DISCHARGED AT THIS TIME. PT TAKEN TO SECURITY / ER TO WAIT FOR CAB. PT W/O PAIN OR RESP DISTRESS AT DISCHARGE. DISCHARGE PAPERS GONE OVER WITH PATIENT SIGNED AND COPY IN CHART. PICC TO RIGHT UPPER ARM IN PLACE DRESSING CHANGED TODAY. PT TOOK SHOWER EARLIER. PT DOES NOT NEED O2 CAROL WILL COOK FISH EGGS WEDNESDAY.08/21/19.
[2019-08-19] MEDS ORDERED: AUGMENTIN 875-1 EACH PO (17:38)
--- NOTE | 2019-08-19 20:13 | NUR ---
PATIENT WAS AMBULATING THE HALLS WITH RESP THERAPY. NO SHORTNESS OF AIR. V.S 98.2 20 95 136/82 O2 SAT = 99%RA. PT IS READY TO DISCHARGE TO HOME. STATES READY TO GO HOME HAS ALWAYS HAD TACHY HEART RATE AND HAS HAD ASPIRATION IN PAST AND O2 IS LOW IF O2 SAT TAKEN ON FINGERS. NONE OF V.S OR SYMPTOMS IS NEW. PT STATES NO PAIN AND NO RESP DISTRESS. HE TOOK SHOWER EARLIER. IS CONT AND WALKS IN ROOM. PT IS PLEASANT AND COOPERATIVE WITH CARE.
== END 2019-08-19 16:37 | disposition home or self-care (01) | DRG 853 ==
LOC: OR 06:49 → TBA 06:49 → OR 08:01 → 4S 08:51 → OR 09:06 → 4S 08-19 16:37
PROVIDERS: ADMIT Orthopaedic Surgery Hand Surgery; ATTEND Internal Medicine
PROC: 02HV33Z Insertion of Infusion Device into Superior Vena Cava, Percutaneous Approach (ICD-10-PCS; principal; 2019-08-15)
PROC: 0JBK0ZZ Excision of Left Hand Subcutaneous Tissue and Fascia, Open Approach (ICD-10-PCS; principal; 2019-08-15)
DX: A41.9 Sepsis, unspecified organism (principal); J69.0 Pneumonitis due to inhalation of food and vomit; J96.01 Acute respiratory failure with hypoxia; N17.0 Acute kidney failure with tubular necrosis; M86.8X4 Other osteomyelitis, hand; S62.607A Fracture of unspecified phalanx of left little finger, initial encounter for closed fracture; E11.21 Type 2 diabetes mellitus with diabetic nephropathy; R11.10 Vomiting, unspecified; E11.43 Type 2 diabetes mellitus with diabetic autonomic (poly)neuropathy; K31.84 Gastroparesis; N18.3 Chronic kidney disease, stage 3 (moderate); E11.69 Type 2 diabetes mellitus with other specified complication; J45.909 Unspecified asthma, uncomplicated; B96.89 Other specified bacterial agents as the cause of diseases classified elsewhere; E11.22 Type 2 diabetes mellitus with diabetic chronic kidney disease; Z20.828 Contact with and (suspected) exposure to other viral communicable diseases; I12.9 Hypertensive chronic kidney disease with stage 1 through stage 4 chronic kidney disease, or unspecified chronic kidney disease; E66.9 Obesity, unspecified; E78.5 Hyperlipidemia, unspecified; Z88.8 Allergy status to other drugs, medicaments and biological substances; Z88.1 Allergy status to other antibiotic agents; Z91.013 Allergy to seafood; Z79.4 Long term (current) use of insulin
CPT/HCPCS: 10102; 27000; 50010; 50101; 50386; 51736; 56526; 57006; 57091; 57178; 62110; 62900; 70005